=== PATIENT | female | born 1940 | race Caucasian/White ===

== ENCOUNTER → 2019-11-18 10:33 | Outpatient (CLI) | payer MEDICARE, SELFPAY | PROVIDERS: PCP Family Medicine; Visit Provider Family Medicine | DX: I49.9 Cardiac arrhythmia, unspecified (principal) | CPT/HCPCS: 93225; 93226 ==

== ENCOUNTER → 2020-05-27 14:24 | Outpatient (CLI) | payer MEDICARE, SELFPAY ==
--- NOTE | 2020-05-27 14:29 | XR_ITS ---
PROCEDURE: XR ANKLE RT MIN 3V CLINICAL INDICATION: ACUTE R ANKLE PAIN COMPARISON: No exams were available for comparison FINDINGS: No fracture, dislocation, lytic change, or blastic change evident. No significant degenerative change IMPRESSION: No acute findings. Dictated by: Ismael Kuo MD 05/27/2020 14:42 Ismael Kuo MD in [place] 05/27/2020 14:42
== END ==
PROVIDERS: PCP Family Medicine; Visit Provider Family Medicine
DX: M25.571 Pain in right ankle and joints of right foot (principal)
CPT/HCPCS: 73610

== ENCOUNTER 2020-10-06 11:59 | Emergency (ER) | payer MEDICARE, SELFPAY ==
[2020-10-06 12:00] VITALS: BP 172/78; PULSE 85; RESP 18; TEMP 36.6; O2SAT 98
[2020-10-06 12:07] VITALS: BP 178/78; PULSE 85; RESP 18; TEMP 36.6; O2SAT 98; BMI 26.2
--- NOTE | 2020-10-06 12:19 | XR_ITS ---
PROCEDURE: XR HIP LT 2-3V W/PELVIS CLINICAL INDICATION: hip pain COMPARISON: CR XR LUMBAR SPINE 2-3V from 10/06/2020 FINDINGS: No fracture or dislocation is evident. There is asymmetrical joint space narrowing of the left hip. There is mild spurring of the inferior femoral head. There are some subtle irregular opacities and radiolucencies in the femoral head raising the possibility of early avascular necrosis. There is mild asymmetrical joint space narrowing right hip. The SI joints and symphysis pubis appear normal.. IMPRESSION: Osteoarthritic changes of both hips, question very mild early avascular necrosis left femoral head and if clinically indicated follow-up CT scan of the pelvis and left hip would be helpful for additional evaluation. Dictated by: Dr. Zeke Sylvester MD 10/06/2020 17:20 Dr. Zeke Sylvester MD in [place] 10/06/2020 17:20
[2020-10-06 12:30] VITALS: BP 187/90; PULSE 86; RESP 18; O2SAT 96
--- NOTE | 2020-10-06 12:44 | HMH.EDGENADL ---
ED Disposition Clinical Impression: Left hip pain, Degenerative disc disease, lumbar Osteoarthritis of left hip Qualifiers: Osteoarthritis type: unspecified Qualified Code(s): M16.12 - Unilateral primary osteoarthritis, left hip Disposition: Home, Self-Care Condition on Discharge: Fair Additional Instructions: Stay off of your feet as much as possible. Tylenol 3 as needed for pain. Follow-up with your primary care provider as soon as possible, call for appointment. Additional instructions for CONTROLLED SUBSTANCES: You have been prescribed a medication that is a controlled substance. Controlled substances include pain medications known as opiates and sedative nerve medications known as benzodiazepines. Tramadol, fioricet, and gabapentin are also controlled substances. Some common opiates include: Codeine (such as Tylenol #3) Hydrocodone (Vicodin, Lortab, Lorcet, Sublette) Oxycodone (Percocet, Percodan, Oxycodone, Oxy IR) Some common benzodiazepines include: Diazepam (Valium) Lorazepam (Ativan) Alprazolam (Xanax) Clonazepam (Klonopin) Oxazepam (Serax) All of these controlled substances are highly addictive and frequently abused. Misuse can and frequently does lead to addiction as well as overdose and . Medication should be stored in a locked cabinet or other secure storage unit. Do not store the medication in a motor vehicle. Short term supplies, 3 days or less, are prescribed because of the highly addictive nature of the medication. Any of the controlled substance medication NOT taken should be disposed of properly and NOT SAVED. The recommended method of disposing of unused medications is: Place the medicines in a sealable plastic bag. If the medicine is a solid, crush it or add water to dissolve it. Add something undesirable (cat litter, coffee grounds, etc.) Dispose of sealed bag in household trash Do not flush or pour unused medicines down a sink or drain. Controlled substances should not be shared, given away or sold. Because of the addictive nature and frequent abuse, these medications are sometimes stolen. These medications should be kept in a safe place where they cannot be stolen. Do not keep them in your car or purse. Lost or stolen prescriptions for controlled substances WILL NOT BE REFILLED in this emergency department, regardless of whether a police report was filed. Prescriptions: Acetaminophen with Codeine [Tylenol with Codeine #3 tablet] 1 - 2 tab PO Q6HP PRN #12 tab PRN Reason: Moderate Pain Transmission Status: Received by [facility] Referrals: Olga Morris MD [Primary Care Provider] - - Critical Care Critical Care Time: No Attestation: On 10/06/20, the high probability of a clinically significant, sudden or life threatening deterioration of the following system(s) required my full and direct attention, intervention and personal management. The time I documented below is in addition to time spent performing reported procedures but includes the following listed in this critical care notation. Medical Decision Making - Willy Inquiry Pt receiving controlled substance: Yes Willy was queried for this patient: Yes Reference #:: [id number] Risks and benefits of using a controlled substance: were discussed with pt by me Comment: 0 rxs Vital Signs: 10/06/20 12:00 10/06/20 12:07 10/06/20 12:30 Temperature 97.9 F 97.9 F Temperature Source Oral Oral Pulse Rate [Right Brachial] 85 85 86 Respiratory Rate 18 18 18 Blood Pressure [Right Arm] 172/78 H 178/78 H 187/90 H Blood Pressure Mean [Right Arm] 109 111 122 Blood Pressure Source [Right Arm] Automatic Cuff Automatic Cuff Automatic Cuff Blood Pressure Position [Right Arm] Sitting Sitting Sitting 02 Sat by Pulse Oximetry 98 98 96 Oxygen Delivery Method Room Air Room Air Room Air 10/06/20 13:00 10/06/20 13:42 Temperature Temperature Source Pulse Rate [Right Brachial] 85 80 Resp
--- NOTE | 2020-10-06 12:45 | XR_ITS ---
PROCEDURE: XR LUMBAR SPINE 2-3V Referring Doctor: Timo Nash Patient Age:79Y CLINICAL INDICATION: pain COMPARISON: No exams were available for comparison FINDINGS: Lumbar spine3 view: AP lateral and lateral spot view lumbosacral junction L2/3-marked degenerative disc space narrowing with vacuum phenomena. Prominent sclerosis about this. Scant retrolisthesis but generous anterior marginal osteophytes but There is mild dextroscoliosis at lumbar spine most evident at L2/3 disc space narrowing seems to be slightly more pronounced to the left on the frontal projection. But there is slight narrowing posterior at L3/4 disc space.. L4/5 and L5/S1 disc appear of well maintained. I as is T12/L1. There may be some mild narrowing at L1/2 disc. Pedicles transverse processes SI joints appear intact. Atherosclerotic calcification lower abdominal aorta. Prominent degenerative facet changes L5/S1 most notable a and less pronounced at L4/5 IMPRESSION: Prominent degenerative disc changes, endplate sclerosis/spondylosis at L2/3 level as above Mild dextroscoliosis L-spine but no acute findings the Dictated by: Vern Wood MD 10/06/2020 14:32 Vern Wood MD in [place] 10/06/2020 14:32
[2020-10-06 13:00] VITALS: BP 145/71; PULSE 85; RESP 18; O2SAT 98
[2020-10-06 13:42] VITALS: BP 148/89; PULSE 80; RESP 18; O2SAT 97
[2020-10-06 13:56] VITALS: BP 148/89; PULSE 78; RESP 16; TEMP 36.6; O2SAT 98
== END 2020-10-06 13:57 | disposition home or self-care (01) ==
PROVIDERS: Emergency Provider Emergency Medicine; PCP Family Medicine
DX: M51.36 Other intervertebral disc degeneration, lumbar region (principal); M16.12 Unilateral primary osteoarthritis, left hip; E11.9 Type 2 diabetes mellitus without complications; I10 Essential (primary) hypertension; E78.5 Hyperlipidemia, unspecified; Z79.899 Other long term (current) drug therapy; Z79.84 Long term (current) use of oral hypoglycemic drugs
CPT/HCPCS: 72100; 73502; 96372; 99283

== ENCOUNTER 2022-02-02 15:34 | Emergency (ER) | payer MEDICARE, SELFPAY ==
--- NOTE | 2022-02-02 15:54 | XR_ITS ---
FINAL REPORT CLINICAL HISTORY: pain, no injury FINDINGS: Two views of the right tibia-fibula demonstrate no acute fracture or dislocation. The joint spaces appear normal. There is a small plantar spur. No soft tissue abnormality is seen. IMPRESSION: No acute process. Reviewed, Interpreted and Dictated by Mina Angeles MD Transcribed by Brady Gordon Authenticated by Mina Angeles MD on 02/02/2022 04:36:52 PM [facility]
--- NOTE | 2022-02-02 15:54 | XR_ITS ---
FINAL REPORT CLINICAL HISTORY: pain, no injury FINDINGS: 3 views of the right knee were obtained. There is no acute fracture or dislocation. The joint spaces are intact. There is no soft tissue abnormality. IMPRESSION: No acute process. Reviewed, Interpreted and Dictated by Mina Angeles MD Transcribed by Brady Gordon Authenticated by Mina Angeles MD on 02/02/2022 04:36:30 PM [facility]
[2022-02-02 16:09] VITALS: BP 174/81; PULSE 91; RESP 16; TEMP 36.7; O2SAT 96; BMI 24.7
--- NOTE | 2022-02-02 16:22 | CA_ITS ---
FINAL REPORT TECHNIQUE: Multiple transverse and longitudinal images were performed of right the femoral-popliteal deep venous system with augmentation and compression maneuvers. CLINICAL HISTORY: suspected blood clot, rt posterior knee pain, no swelling FINDINGS: Right lower extremity duplex ultrasound demonstrates normal flow in the deep venous system. There is no abnormal echogenicity to suggest thrombus. There is normal compression and augmentation. IMPRESSION: No evidence of right DVT. Reviewed, Interpreted and Dictated by Mina Angeles MD Transcribed by Chiquita Mcdonald Authenticated by Mina Angeles MD on 02/02/2022 04:58:27 PM [facility]
--- NOTE | 2022-02-02 17:18 | HMH.EDUTC ---
[facility] [place] Clinical Impression: Right leg pain Sciatica Qualifiers: Laterality: right Qualified Code(s): M54.31 - Sciatica, right side Disposition: Home, Self-Care Condition on Discharge: Good Instructions: DI for Sciatica Additional Instructions: Go home and rest. Try to rest for the next few days. No heavy lifting. No twisting. Take the oral medications as directed. Don't start the oral steroids (medrol dose pack) until tomorrow, since you had the shots in here today. Follow up with your regular doctor. GO TO THE ER FOR ANY WORSENING SYMPTOMS OR CONCERN, ESPECIALLY BOWEL OR BLADDER ISSUES, SADDLE AREA NUMBNESS, FEVER, ETC Prescriptions: methylPREDNISolone [Medrol] 4 mg PO DIRECTED 6 Days #21 packet Transmission Status: Received by [facility] Referrals: Olga Morris MD [Primary Care Provider] - Time of Disposition: 17:30 Medical Decision Making - Medical Records Medical records reviewed: No: I reviewed the patient's medical records. - Willy Inquiry Pt receiving controlled substance: No Vital Signs: 02/02/22 16:09 02/02/22 17:47 Temperature 98.1 F 98.1 F Temperature Source Oral Pulse Rate 91 H Pulse Rate [Left] 91 H Respiratory Rate 16 16 Blood Pressure 174/81 H Blood Pressure [Right Arm] 174/81 H Blood Pressure Mean [Right Arm] 112 02 Sat by Pulse Oximetry 96 Orders (Tests/Meds): ED MEDICATIONS Discontinued Medications Generic Name Dose Route Start Last Admin Trade Name Arielq PRN Reason Stop Dose Admin Ketorolac Tromethamine 30 mg 02/02/22 17:25 02/02/22 17:46 Ketorolac 60mg/2ml Vial IM 02/02/22 17:26 30 mg ONCE ONE Administration Methylprednisolone Sodium Succinate 125 mg 02/02/22 17:25 02/02/22 17:44 Methylprednisolone Sod Succ 125mg Vial IM 02/02/22 17:26 125 mg ONCE ONE Administration [facility] [place] HPI - General Stated complaint: pain R leg Time Seen by Provider: 02/02/22 16:30 Mode of Arrival: Ambulatory Source of Information: Patient Limitations: No Limitations HEENT Symptoms (Recalled from RN notes): No Resp Symptoms (Recalled from RN notes): No Skin Symptoms (Recalled from RN notes): No MS Symptoms (Recalled from RN notes): Yes Functional Status (Recalled from RN notes): wnl - History of Present Illness Provider Complaint: pt c/o R knee and lower leg pain x2 weeks. pt states she has had recurring lower back pain and lower R leg pain. pt states it feels like needles. pt denies redness, warmth and tightness in her leg. pt states her PCP says she has arthritis in said leg. - Related Data Home Medications Medication Instructions Recorded Confirmed Amlodipine Besylate [Amlodipine 5 mg PO DAILY 08/14/19 10/06/20 5mg tab] Atorvastatin Calcium [Atorvastatin 20 mg PO HS 08/14/19 10/06/20 20mg Tab] Benazepril HCl 40 mg PO DAILY 08/14/19 10/06/20 Cyanocobalamin (Vitamin B-12) 1,000 mcg PO DAILY 08/14/19 10/06/20 [Vitamin B-12] allopurinoL [Allopurinol 300mg 300 mg PO DAILY 08/14/19 10/06/20 tablet] hydroCHLOROthiazide 50 mg PO DAILY 08/14/19 10/06/20 [Hydrochlorothiazide 50mg Tab] glimepiride 2 mg tablet 2 mg PO DAILY 12/20/19 10/06/20 metformin 1,000 mg tablet 1,000 mg PO DAILY 12/20/19 10/06/20 potassium chloride 20 mEq 20 meq PO DAILY 12/20/19 10/06/20 tablet,extended release trazodone 50 mg tablet 75 mg PO HS tab 12/20/19 10/06/20 Previous Rx's Medication Instructions Recorded Acetaminophen with Codeine 1 - 2 tab PO Q6HP PRN #12 tab 10/06/20 [Tylenol with Codeine #3 tablet] methylPREDNISolone [Medrol] 4 mg PO DIRECTED 6 Days #21 02/02/22 packet Allergies Allergy/AdvReac Type Severity Reaction Status Date / Time No Known Allergies Allergy Verified 10/06/20 12:13 - Worker's Comp Is this a Worker's Comp case?: No [facility] History - Hepatitis A Screen Attestation statement:: This patient has been screened for Hepatitis A risk
[2022-02-02 17:47] VITALS: BP 174/81; PULSE 91; RESP 16; TEMP 36.7
== END 2022-02-02 17:48 | disposition home or self-care (01) ==
PROVIDERS: Emergency Provider Nurse Practitioner Family; PCP Family Medicine
DX: M54.31 Sciatica, right side (principal); M54.50 Low back pain, unspecified; M79.604 Pain in right leg; I10 Essential (primary) hypertension; E78.5 Hyperlipidemia, unspecified; E11.9 Type 2 diabetes mellitus without complications; Z79.1 Long term (current) use of non-steroidal anti-inflammatories (NSAID); Z79.52 Long term (current) use of systemic steroids; Z79.84 Long term (current) use of oral hypoglycemic drugs; Z79.899 Other long term (current) drug therapy
CPT/HCPCS: 73562; 73590; 93971; 96372; 99213; G0463

== ENCOUNTER → 2022-05-02 14:49 | Outpatient (CLI) | payer MEDICARE, SELFPAY ==
--- NOTE | 2022-05-02 14:59 | ECG_ITS ---
APPROVED REPORT Exam: Resting ECG HR:85 bpm ECG Measurements Heart Rate 85 AXES [place] 163 P 52 QRSd 93 QRS -12 QT 354 T 64 QTc 396 Conclusion SINUS RHYTHM WITH OCCASIONAL VENTRICULAR PREMATURE COMPLEXES BORDERLINE ECG UNCONFIRMED REPORT Electronically signed by : Sunny Gonzalez MD 05/03/2022 14:15:07
== END ==
PROVIDERS: PCP Family Medicine; Visit Provider Family Medicine
DX: I49.9 Cardiac arrhythmia, unspecified (principal)
CPT/HCPCS: 93005

== ENCOUNTER → 2022-05-27 16:20 | Outpatient (CLI) | payer MEDICARE, SELFPAY ==
--- NOTE | 2022-05-27 16:23 | MR_ITS ---
PROCEDURE INFORMATION: Exam: MR Right Lower Extremity Joint Without Contrast, Knee Exam date and time: 05/27/2022 4:31 PM Age: 81 years old Clinical indication: Pain; Knee; Right; Additional info: Right knee pain TECHNIQUE: Imaging protocol: Magnetic resonance imaging of the Right lower extremity joint without contrast. Exam focused on the knee. COMPARISON: CA VENOUS DOPPLER LE RT 02/02/2022 4:30 PM FINDINGS: Bones and cartilage: No fracture or suspicious marrow signal. Mild tricompartmental osteoarthritis. Joint spaces: No joint effusion. Medial meniscus: No internal derangement. Lateral meniscus: Unremarkable. No tear. Anterior cruciate ligament: Unremarkable. No tear. Posterior cruciate ligament: Unremarkable. No tear. Medial capsule and supporting structures: Unremarkable. No tear. Lateral capsule and supporting structures: Unremarkable. No tear. Extensor mechanism of knee: Unremarkable. No tear. Muscles: Unremarkable. Soft tissues: Unremarkable. IMPRESSION: 1. No fracture or suspicious marrow signal. 2. No internal derangement. 3. Mild tricompartmental osteoarthritis.
== END ==
PROVIDERS: PCP Family Medicine; Visit Provider Nurse Practitioner Family
DX: M25.561 Pain in right knee (principal)
CPT/HCPCS: 73721

== ENCOUNTER 2022-09-25 07:34 | Emergency (ER) | payer MEDICARE, SELFPAY ==
[2022-09-25] VITALS (8 sets, daily range): BP systolic 145–198; BP diastolic 78–92; PULSE 75–86; RESP 13–18; TEMP 36.6; O2SAT 95–97; BMI 24.7
--- NOTE | 2022-09-25 08:05 | ECG_ITS ---
APPROVED REPORT Exam: Resting ECG HR:77 bpm ECG Measurements Heart Rate 77 AXES [place] 170 P 60 QRSd 90 QRS -26 QT 350 T 68 QTc 382 Conclusion SINUS RHYTHM WITH OCCASIONAL VENTRICULAR PREMATURE COMPLEXES BORDERLINE LEFT AXIS DEVIATION [QRS AXIS < -20] NONSPECIFIC T-WAVE ABNORMALITY BORDERLINE ECG UNCONFIRMED REPORT Electronically signed by : Sunny Gonzalez MD 09/26/2022 07:18:07
[2022-09-25 08:12] LABS: Basophils # 0.1 K/mm3 (0-0.2); Basophils % 0.8 % (0.1-2.0); Eosinophils # 0.2 K/mm3 (0.0-0.4); Hematocrit 40.7 % (37.0-47.0); Hemoglobin 13.7 g/dL (12.2-16.2); Lymphocytes # 2.5 K/mm3 (0.7-4.5); Mean Corpuscular HGB Conc 33.8 g/dL (31.8-35.4); Mean Corpuscular Hemoglobin 30.2 pg (27.0-31.2); Mean Corpuscular Volume 89.5 fl (81-99); Mean Platelet Volume 9.2 fl (7.4-10.4); Monocytes # 0.4 K/mm3 (0.1-1.0); Monocytes % 5.9 % (1.7-9.3); Neutrophils # 4.2 K/mm3 (1.8-7.8); Neutrophils % 56.3 % (37.0-80.0); Platelet Count 220 K/mm3 (142-424); Red Blood Count 4.55 M/mm3 (4.20-5.40); White Blood Count 7.4 K/mm3 (4.8-10.8)
[2022-09-25 08:14] LABS: Chloride 98 mmol/L (98-107); Potassium 3.1 mmoL/L (3.5-5.1); Sodium 142 mmol/L (136-145)
[2022-09-25 08:16] LABS: Alanine Aminotransferase 28 U/L (12-78); Aspartate Amino Transferase 37 U/L (14-36); Blood Urea Nitrogen 19 mg/dl (7-17); Creatinine Clearance Estimated 45 mL/min (50-200); Estimated Glomerular Filt Rate 53 ml/min (>60); GFR (African American) 65 ML/MIN (>60)
[2022-09-25 08:17] LABS: Albumin/Globulin Ratio 1.5 (1.1-1.8); Alkaline Phosphatase 166 U/L (38-126); Anion Gap 10.1 mEq/L (5-15); Bilirubin,Total 0.5 mg/dl (0.2-1.3); Calcium 8.9 mg/dl (8.4-10.2); Carbon Dioxide 37 mmol/L (22.0-30.0); Globulin 2.7 g/dL (1.3-3.2); Glucose 133 mg/dl (74-100); Total Protein,Serum 6.7 g/dl (6.3-8.2)
--- NOTE | 2022-09-25 08:53 | HMH.EDGENADL ---
Discharge Plan Disposition Patient Disposition: Home, Self-Care Condition: Good Prescriptions Prescriptions: No Action metformin 1,000 mg tablet 1,000 mg PO DAILY potassium chloride 20 mEq tablet extended release 20 meq PO DAILY diclofenac sodium 1 % gel topical glimepiride 4 mg tablet 4 mg PO DAILY amlodipine 2.5 mg tablet 2.5 mg PO DAILY meloxicam 15 mg tablet 15 mg PO DAILY furosemide 40 mg tablet 40 mg PO DAILY atorvastatin 20 MG tablet 20 mg PO HS allopurinol 300 MG tablet 300 mg PO DAILY benazepril 40 MG tablet 40 mg PO DAILY cyanocobalamin (vitamin B-12) 1,000 MCG capsule 1,000 mcg PO DAILY Rx Instructions: trazodone 50 mg tablet 75 mg PO HS Referrals Follow up/Referrals: Olga Morris MD [Primary Care Provider] - See instructions Activity Restrictions/Add. Instructions Additional Instructions/Restrictions: Increase dose of amlodipine to 5 mg daily. Continue the same dose of benazepril. You were given both of your blood pressure medications today in the emergency department. Increased dose of potassium to 2 tablets daily for the next 3 days. Follow-up with your primary care provider, call tomorrow morning to make appointment to be seen for blood pressure, potassium rechecked, anxiety, and leg pain. Clinical Impressions Clinical Impression: Anxiety, Hypertension, Acute hypokalemia Discharge ED Provider: Timo Nash General Adult HPI General Chief complaint: Recheck/Abnormal Lab/Rx Stated complaint: high blood pressure Time Seen by Provider: 09/25/22 08:54 Mode of Arrival: Ambulatory Limitations: No Limitations Description of Symptoms (Recalled from ER Triage Doc. by RN): PT REPORTS ELEVATED BLOOD PRESSURE SINCE MONDAY. CHECKED AT HOME THIS AM SYSTOLIC 217. HAS NOT TAKEN HER AM BLOOD PRESSURE MEDICATION. History of Present Illness HPI narrative: Patient states she awakened in the middle of the night feeling shaky. Says her blood pressure was high. She did not take her morning blood pressure medication, stated she did not have time because she came to the emergency department. She has some chronic pain in her right leg. She saw Dr. Gandhi, orthopedics, in the office this week for that and her blood pressure was elevated then. She says it was 200 systolic. Otherwise she says she does not feel sick. No chest pain, no blurry vision, no headache. Her states that he thinks she is suffering from anxiety. She is on amlodipine 2.5 mg and benazepril 40 mg daily for blood pressure. Related Data Home Medications Medication Instructions Recorded Confirmed allopurinol 300 mg tablet 300 mg PO DAILY gout 08/14/19 09/22/22 atorvastatin 20 mg tablet 20 mg PO HS chlesterol 08/14/19 09/22/22 benazepril 40 mg tablet 40 mg PO DAILY blood pressure 08/14/19 09/22/22 cyanocobalamin (vitamin B-12) 1,000 mcg PO DAILY supplemennt 08/14/19 09/22/22 1,000 mcg capsule metformin 1,000 mg tablet 1,000 mg PO DAILY Diabetes 12/20/19 09/22/22 potassium chloride 20 mEq 20 meq PO DAILY Supplement 12/20/19 09/22/22 tablet,extended release trazodone 50 mg tablet 75 mg PO HS sleep 12/20/19 09/22/22 amlodipine 2.5 mg tablet 2.5 mg PO DAILY 06/14/22 09/22/22 diclofenac sodium 1 % topical gel topical 06/14/22 09/22/22 furosemide 40 mg tablet 40 mg PO DAILY 06/14/22 09/22/22 glimepiride 4 mg tablet 4 mg PO DAILY 06/14/22 09/22/22 meloxicam 15 mg tablet 15 mg PO DAILY 06/14/22 09/22/22 Allergies Allergy/AdvReac Type Severity Reaction Status Date / Time No Known Allergies Allergy Verified 09/22/22 15:49 [facility] Disclaimer: The information contained in this section may have been updated after the patient was seen, as this information can be updated by other users. Medical History Diabetes mellitus Hyperlipidemia Hypertension Surgical
--- NOTE | 2022-09-25 08:56 | PC.NURSE ---
PT ASSISTED TO BR
--- NOTE | 2022-09-25 09:06 | PC.NURSE ---
DR. VANN AT BEDSIDE
--- NOTE | 2022-09-25 09:22 | PC.NURSE ---
PT MEDICATED PER EMAR, NO NEEDS AT THIS TIME
== END 2022-09-25 10:10 | disposition home or self-care (01) ==
PROVIDERS: Emergency Provider Emergency Medicine; PCP Family Medicine
DX: I10 Essential (primary) hypertension (principal); E87.6 Hypokalemia; R79.9 Abnormal finding of blood chemistry, unspecified; R78.5 Finding of other psychotropic drug in blood; E11.9 Type 2 diabetes mellitus without complications; M79.604 Pain in right leg; G89.29 Other chronic pain; F41.9 Anxiety disorder, unspecified; Z79.84 Long term (current) use of oral hypoglycemic drugs; Z79.899 Other long term (current) drug therapy; Z82.49 Family history of ischemic heart disease and other diseases of the circulatory system
CPT/HCPCS: 80053; 85025; 93005; 99285

== ENCOUNTER → 2022-09-29 15:46 | Outpatient (CLI) | payer MEDICARE, SELFPAY ==
--- NOTE | 2022-09-29 15:47 | MR_ITS ---
PROCEDURE INFORMATION: Exam: MR Lumbar Spine Without Contrast Exam date and time: 09/29/2022 3:56 PM Age: 81 years old Clinical indication: Low back pain; Additional info: Back pain. With right leg pain , numbness and tingling for several months. TECHNIQUE: Imaging protocol: Magnetic resonance imaging of the lumbar spine without contrast. COMPARISON: CR XR LUMBAR SPINE 2-3V 10/06/2020 1:09 PM FINDINGS: Bones/joints: The lumbar vertebral bodies are normal in height. Mild retrolisthesis of L1 on 2 and L2 on L3. Grade 1 anterolisthesis of L5 on S1. Mild dextroscoliosis of the lumbar spine. Spinal cord: The distal end of the conus medullaris ends at L1-L2, normal in position. Multilevel findings: Degenerative changes are noted at multiple lumbar and lower thoracic levels, with a decrease in the T2 signal intensity of the discs as well as disc bulge/osteophyte complexes. A decrease in disc height is identified at L2-L3, with heterogeneous signal intensity of the bone marrow adjacent to the endplates consistent with Modic endplate changes. L1-L2: A right paracentral disc herniation/protrusion is identified with mild narrowing of the thecal sac. Mild left neural foraminal narrowing. No significant narrowing of the right neural foramen. L2-L3: Bilateral facet arthropathy with hypertrophy of the ligamentum flavum. A broad-based disc bulge is identified, with mild narrowing of the thecal sac. Moderate left and mild right neural foraminal narrowing. A left foraminal protrusion is seen. L3-L4: Bilateral facet arthropathy with hypertrophy of the ligamentum flavum. A broad-based disc bulge is identified, without significant spinal canal stenosis. Moderate right and mild left neural foraminal narrowing. Narrowing of both lateral recesses. L4-L5: Bilateral facet arthropathy with hypertrophy of the ligamentum flavum. A broad-based disc bulge is visualized, with minimal narrowing of the thecal sac. Moderate right and mild left neural foraminal narrowing. Narrowing of the lateral recesses. L5-S1: Bilateral facet arthropathy. No significant spinal canal stenosis. There is slight narrowing of the inferior aspect of the right neural foramen. No significant narrowing of the left neural foramen. Soft tissues: At the L3-L4 level, there is a small prevertebral cystic collection of fluid, which is nonspecific. This measures 1.5 x 0.6 cm. Focal dilatation of the lymphatic channel within the differential. Kidneys and ureters: Nonspecific left perinephric stranding. Reproductive: Within the right adnexa, there is a STIR hyperintense cyst or cystic lesion partially visualized measuring 2.3 cm in diameter. IMPRESSION: 1. Mild retrolisthesis of L1 on 2 and L2 on L3. Grade 1 anterolisthesis of L5 on S1. 2. Degenerative changes are noted at multiple lumbar and lower thoracic levels, as described above. 3. A right paracentral disc herniation/protrusion is identified at L1-L2, with mild narrowing of the thecal sac. 4. Mild narrowing of the thecal sac at L2-L3, with minimal narrowing of the thecal sac at L4-L5. 5. Neural foraminal narrowing diffusely within the lumbar spine. 6. Mild dextroscoliosis of the lumbar spine. 7. Within the right adnexa, there is a cyst or cystic lesion partially visualized. Follow-up ultrasonography recommended. 8. Nonspecific left perinephric stranding. 9. At the L3-L4 level, there is a small prevertebral cystic collection of fluid, which is nonspecific. Focal dilatation of the lymphatic channel within the differential.
== END ==
LOC: RAD 15:47
PROVIDERS: PCP Family Medicine; Visit Provider Orthopaedic Surgery
DX: M51.36 Other intervertebral disc degeneration, lumbar region (principal); M54.50 Low back pain, unspecified
CPT/HCPCS: 72148; 76376

== ENCOUNTER 2023-07-27 13:34 | Emergency (ER) | payer MEDICARE, SELFPAY ==
[2023-07-27 13:35] VITALS: BP 206/117; PULSE 101; RESP 16; TEMP 37; O2SAT 96; BMI 24.7
--- NOTE | 2023-07-27 14:33 | EXP.UTC ---
Discharge Plan Disposition Patient Disposition: Home, Self-Care Condition: Good Prescriptions Prescriptions: New methylprednisolone [Medrol (Boy)] 4 mg tablets,dose pack See Rx Instructions .Route .COMPLEX 6 Days Qty: 21 0RF Rx Instructions: taper pack; No Action metformin 1,000 mg tablet 1,000 mg PO DAILY potassium chloride 20 mEq tablet extended release 20 meq PO DAILY diclofenac sodium 1 % gel topical glimepiride 4 mg tablet 4 mg PO DAILY amlodipine 2.5 mg tablet 2.5 mg PO DAILY meloxicam 15 mg tablet 15 mg PO DAILY furosemide 40 mg tablet 40 mg PO DAILY atorvastatin 20 MG tablet 20 mg PO HS allopurinol 300 MG tablet 300 mg PO DAILY benazepril 40 MG tablet 40 mg PO DAILY cyanocobalamin (vitamin B-12) 1,000 MCG capsule 1,000 mcg PO DAILY Rx Instructions: trazodone 50 mg tablet 75 mg PO HS Referrals Follow up/Referrals: Olga Morris MD [Primary Care Provider] - See instructions Activity Restrictions/Add. Instructions Additional Instructions/Restrictions: Do not take any Ibuprofen for the next 10 hours Follow up with your Family Doctor if no improvement or any worsening of symptoms Start oral Medrol pack tomorrow Return if needed Straight to ER if any life threatening symptoms Clinical Impressions Clinical Impression: Sciatica Qualifiers: Laterality: right Qualified Code(s): M54.31 - Sciatica, right side Instructions Patient Instructions: DI for Sciatica, Sciatica Discharge ED Provider: Alessandra Low [facility] [place] General Stated complaint: RT LEG AND KNEE PAIN, NO ACCIDENT Mode of Arrival: Ambulatory Source of Information: Patient Limitations: No Limitations Time Seen by Provider: 07/27/23 14:33 Description of Symptoms (Recalled from Triage Doc. by RN): Patient reports pain in right knee and leg for 2 weeks. HEENT Symptoms (Recalled from RN notes): No Resp Symptoms (Recalled from RN notes): No Skin Symptoms (Recalled from RN notes): No MS Symptoms (Recalled from RN notes): Yes Functional Status (Recalled from RN notes): wnl History of Present Illness Provider Complaint: Patient states that she has a history nerve pain in her right hip and leg and when it acts up it hurts down to her knee States that when it does this she has to come in and get a shot to help it States that it started about 2 weeks ago and hasnt improved so she came in today wanting to get shot for it Related Data Home Medications Medication Instructions Recorded Confirmed allopurinol 300 mg tablet 300 mg PO DAILY gout 08/14/19 10/06/22 atorvastatin 20 mg tablet 20 mg PO HS chlesterol 08/14/19 10/06/22 benazepril 40 mg tablet 40 mg PO DAILY blood pressure 08/14/19 10/06/22 cyanocobalamin (vitamin B-12) 1,000 mcg PO DAILY supplemennt 08/14/19 10/06/22 1,000 mcg capsule metformin 1,000 mg tablet 1,000 mg PO DAILY Diabetes 12/20/19 10/06/22 potassium chloride 20 mEq 20 meq PO DAILY Supplement 12/20/19 10/06/22 tablet,extended release trazodone 50 mg tablet 75 mg PO HS sleep 12/20/19 10/06/22 amlodipine 2.5 mg tablet 2.5 mg PO DAILY 06/14/22 10/06/22 diclofenac sodium 1 % topical gel topical 06/14/22 10/06/22 furosemide 40 mg tablet 40 mg PO DAILY 06/14/22 10/06/22 glimepiride 4 mg tablet 4 mg PO DAILY 06/14/22 10/06/22 meloxicam 15 mg tablet 15 mg PO DAILY 06/14/22 10/06/22 Previous Rx's Medication Instructions Recorded methylprednisolone 4 mg tablets in See Rx Instructions .Route 07/27/23 a dose pack (Medrol (Boy)) .COMPLEX 6 days #21 tabs Allergies Allergy/AdvReac Type Severity Reaction Status Date / Time No Known Allergies Allergy Verified 10/06/22 12:24 Worker's Comp Is this a Worker's Comp case?: No [facility] Disclaimer: The information contained in this section may have been updated after the patient was seen, as this information can be updated by other users. Medical
[2023-07-27 15:25] VITALS: BP 168/88; PULSE 101; RESP 16; TEMP 37; O2SAT 96
== END 2023-07-27 15:26 | disposition home or self-care (01) ==
PROVIDERS: Emergency Provider Nurse Practitioner; PCP Family Medicine
DX: M54.31 Sciatica, right side (principal); E11.9 Type 2 diabetes mellitus without complications; I10 Essential (primary) hypertension; E78.5 Hyperlipidemia, unspecified; Z79.84 Long term (current) use of oral hypoglycemic drugs
CPT/HCPCS: 96372; 99212; 99214; G0463

== ENCOUNTER 2024-12-20 13:59 | Outpatient (CLI) | payer MEDICARE, SELFPAY ==
--- NOTE | 2024-12-20 14:11 | ECG_ITS ---
APPROVED REPORT Exam: Resting ECG HR:90 bpm ECG Measurements Heart Rate 90 AXES UT 164 P 58 QRSd 79 QRS 58 QT 381 T 46 QTc 428 Conclusion SINUS RHYTHM WITH OCCASIONAL VENTRICULAR PREMATURE COMPLEXES INDETERMINATE AXIS BORDERLINE ECG UNCONFIRMED REPORT Electronically signed by : Sunny Gonzalez MD 12/23/2024 08:52:59
== END 2024-12-20 23:59 | disposition home or self-care (01) ==
LOC: RT 14:01
PROVIDERS: PCP Family Medicine; Visit Provider Family Medicine
DX: I10 Essential (primary) hypertension (principal); R94.31 Abnormal electrocardiogram [ECG] [EKG]
CPT/HCPCS: 93005

== ENCOUNTER 2024-12-30 13:04 | Outpatient (CLI) | payer MEDICARE, SELFPAY ==
--- NOTE | 2024-12-30 | CA_ITS ---
APPROVED REPORT EXAM: Comprehensive 2D, Doppler, and color-flow Echocardiogram [employer]er: Carole Yoon RT(R) Ht: 5 ft 3 in Wt: 140lbs BSA: 1.66 BP: 200/105 mmHg Indications: HTN, hyperlipidemia, DM Echo Enhancing Agent Indication: Endocardial border delineation Agent(s) / Amount(s) Used: Definity 2 cc 2D Dimensions LVEF (Vogt's) 38.60 % F: 54 - 74 LV Volume 58.60 mL F: 46 - 106 LV Volume Index 35.3 mL/m2 F: 29 - 61 EF AP4 36.20 % EF AP2 43.1 % EF BP 38.6 % GL Strain -11.4 % M-Mode Dimensions RVDd 2.68 cm (0.9-2.6) LA Diam 2.76 cm (1.9-4.0) LVDd 4.36 cm (3.5-5.7) LVDs 3.40 cm (3.5-5.7) IVSd 1.07 cm (0.6-1.1) PWd 0.79 cm (0.6-1.1) EF (Teich) 44.80% FS 22.00% EDV (Teich) 85.80 mL ESV (Teich) 47.40 mL LV Diastology E Decel Time 193 (160-240 msec) E/A Ratio 0.7 Aortic Valve TITO Index 0.98 cm2/m2 AoV Peak Mikhail. 148.0 (50-130 cm/s) AO Peak GR. 8.80 mmHg AO Mean GR. 4.30 (<5 mmHg) AO VTI 28.8 (18-25 cm) TITO (VTI) 1.67 (2.5-4.5 cm2) Mitral Valve MV E Max Mikhail. 62.0 (40-130 cm/s) MV A Velocity 91.0 (40-130 cm/s) E/A Ratio 0.69 MV PHT 57.0 ms Left Ventricle The left ventricle is normal size. The left ventricular systolic function is mildly reduced. There is mild global hypokinesis present. There is increased LV wall thickness. Diastolic function is indeterminate. LVEF is 45%. Right Ventricle The right ventricle is normal size. The right ventricular systolic function is normal. Atria The left atrium is mildly dilated. Right atrium is mildly dilated. There is no Doppler evidence of interatrial shunt. Aortic Valve Aortic valve is mildly thickened. There is no aortic valvular stenosis. Mild aortic regurgitation. Mitral Valve The mitral valve is normal in structure. No evidence of mitral valve stenosis. Mild mitral regurgitation. Tricuspid Valve Tricuspid valve is grossly normal in structure and function. Trace tricuspid regurgitation. There is insufficient TR jet to estimate RVSP. Pulmonic Valve The pulmonary valve is normal in structure. Mild pulmonic regurgitation. Great Vessels The aortic root is normal in size. The ascending aorta is normal in size. IVC is normal in size and collapses >50% with inspiration. Pericardium There is no pericardial effusion. Other Information Study Quality: Fair Conclusion Mildly reduced LV systolic function (LVEF 45%). Biatrial dilation. Mild MR, mild AI, mild PI. Electronically signed by : Susie Livingston MD 01/05/2025 21:26:33
[2024-12-30] MEDS: DEFINITY US ECHO CONTRAST 2ML INJ 2 MG IV (14:01)
== END 2024-12-30 23:59 | disposition home or self-care (01) ==
LOC: RT 13:05
PROVIDERS: PCP Family Medicine; Visit Provider Family Medicine
DX: I51.7 Cardiomegaly (principal); I34.0 Nonrheumatic mitral (valve) insufficiency; I35.1 Nonrheumatic aortic (valve) insufficiency; I37.1 Nonrheumatic pulmonary valve insufficiency; I49.9 Cardiac arrhythmia, unspecified
CPT/HCPCS: 93306; Q9957